=== PATIENT | female | born 1950 | race Caucasian/White ===

== ENCOUNTER → 2018-09-28 | Day surgery (SDC) | payer MEDICARE, BC ==
[~2018-09-28] MED LIST: ALBUTEROL SULFATE 2.5 MG/3 ML NEBU. NEB PRN; ATROPINE 0.5 MG/5 ML DISP.SYRIN. IV PRN; CELE200C PO; IV RINGERS SOLUTION,LACTATED 1,000 ML IV SCH; LIDOCAINE 2% PF Vial for OR 5 ML VIAL. ONE; NALOXONE 0.4 MG/ML VIAL. IV PRN; ONDANSETRON PF 4 MG/2 ML VIAL. IV PRN; PROPOFOL 40 ML IV ONE; RANI150T21 PO; VALA10005 PO; diphenhydrAMINE 50 MG/ML VIAL IV PRN
[2018-09-28 12:10] VITALS: BP 120/74
== END | disposition home or self-care (01) ==
LOC: SURG 09:24
PROVIDERS: ATTEND Internal Medicine Gastroenterology
DX: R19.4 Change in bowel habit (principal); K21.9 Gastro-esophageal reflux disease without esophagitis; Z98.890 Other specified postprocedural states; Z79.899 Other long term (current) drug therapy; Z88.8 Allergy status to other drugs, medicaments and biological substances
CPT/HCPCS: 45378; J2704; J2001

== ENCOUNTER → 2018-11-17 | Outpatient (CLI) | payer MEDICARE, BC ==
[2018-09-28 12:10] VITALS: BP 120/74
[~2018-11-17] MED LIST changes: -ALBUTEROL SULFATE 2.5 MG/3 ML NEBU. NEB PRN; -ATROPINE 0.5 MG/5 ML DISP.SYRIN. IV PRN; -IV RINGERS SOLUTION,LACTATED 1,000 ML IV SCH; -LIDOCAINE 2% PF Vial for OR 5 ML VIAL. ONE; -NALOXONE 0.4 MG/ML VIAL. IV PRN; -ONDANSETRON PF 4 MG/2 ML VIAL. IV PRN; -PROPOFOL 40 ML IV ONE; -diphenhydrAMINE 50 MG/ML VIAL IV PRN
--- NOTE | 2018-11-17 15:59 | RAD ---
DATE: 11/17/2018 EXAM: MAMMO RM AIDANG RT, BREAST RIGHT HISTORY: Right breast lump COMPARISON: 09/14/2018, 12/12/2015 This study was interpreted with the benefit of Computerized Aided Detection (CAD). Breast Density: HETERO The breast parenchyma is heterogenously dense, which could reduce sensitivity of mammography. Breast parenchyma level C. FINDINGS: 2-D and 3-D tomosynthesis imaging was performed in CC and MLO projections. There is a 22 mm smooth nodule seen in the upper inner quadrant at approximately the 12:30 location. A similar finding was present on the previous study. The fibroglandular tissues are quite heterogeneous. No spiculated mass or architectural distortion is evident. There are scattered benign type calcifications. There is clustering of microcalcifications laterally which was also evident on the previous study. These were better defined on the 09/14/2018 study due to technical factors. These have been present on previous studies dating back to at least 12/12/2015, favoring a benign etiology. Right breast ultrasound, 11/17/2018: A targeted ultrasound exam of the right breast demonstrates an anechoic structure compatible with a cyst at the 12:30 location approximately 5 cm from the nipple. It demonstrates good through transmission. It measures 2.5 x 1.7 x 1.3 cm. This corresponds in size and location to the mammographic abnormality. IMPRESSION: 1. Simple cyst at the 12:30 location in the right breast. 2. No significant change since 09/14/2018 BI-RADS CATEGORY: 2 BENIGN FINDING(S) RECOMMENDED FOLLOW-UP: 12M 12 MONTH FOLLOW-UP PQRS compliance statement: Patient information was entered into a reminder system with a target due date for the next mammogram. Mammography is a sensitive method for finding small breast cancers, but it does not detect them all and is not a substitute for careful clinical examination. A negative mammogram does not negate a clinically suspicious finding and should not result in delay in biopsying a clinically suspicious abnormality. "Our facility is accredited by the [employer] Mammography Program."
== END | disposition home or self-care (01) ==
LOC: US 12:52
PROVIDERS: ATTEND Physician Assistant Medical
DX: N60.01 Solitary cyst of right breast (principal); N64.89 Other specified disorders of breast
CPT/HCPCS: 76641; 77065; G0279; 77061

== ENCOUNTER 2020-05-01 14:23 | Emergency (ER) | payer MEDICARE, BC ==
[~2020-05-01] VITALS: Ht 162.6 cm; Wt 81.8 kg
[~2020-05-01 14:23] MED LIST changes: +RANI-376 PO; -RANI150T21 PO
--- NOTE | 2020-05-01 15:16 | PHYS DOC ---
Past History Past Medical History: Hypertension (SADIQ GALDAMEZ APRN) Past Surgical History: Other Additional Past Surgical Histo: PARTIAL THYROIDECTOMY (SADIQ GALDAMEZ APRN) Alcohol Use: None (SADIQ GALDAMEZ APRN) Adult General Chief Complaint Chief Complaint: HEADACHE HPI HPI Patient is a 69-year-old female who presents emergency department with complaints of a headache behind her left eye since awakening at 4:00 this morning. Patient reports she has been having problems with intermittent headaches for the last month, the headaches are typically relieved by ibuprofen or Aleve. Patient states that she took Aleve this morning with no change in her discomfort. She denies any vision changes, photosensitivity, dizziness, syncope, neck pain, fever, cough, sore throat, nausea, vomiting, diarrhea, abdominal pain, body aches, shortness of breath, edema, chest pain, or palpitations. Patient denies any numbness, tingling, or weakness at this time. Patient reports that 4 days ago she did have some numbness in her left arm but denies any symptoms at this time. Patient reports that when she was younger she used to have migraine headaches but has not had one in several years. Patient was seen by her primary care doctor yesterday and was prescribed losartan for high blood pressure. Patient states until yesterday she has always had low blood pressure. She currently rates her pain a 5 out of 10 on the pain scale, she denies any alleviating or exacerbating factors. (SADIQ GALDAMEZ APRN) Review of Systems Review of Systems Complete ROS is negative unless otherwise noted in HPI. (SADIQ GALDAMEZ APRN) Allergies Allergies Allergies Coded Allergies Type Severity Reaction Last Updated Verified propoxyphene Allergy Unknown 05/01/20 Yes (SADIQ GALDAMEZ APRN) Physical Exam Physical Exam See Above Constitutional: Well developed, well nourished, no acute distress, Anxious. [] HENT: Normocephalic, atraumatic, bilateral external ears normal, oropharynx moist, no oral exudates, nose normal. [] Eyes: PERRLA, EOMI, conjunctiva normal, no discharge. [] Neck: Normal range of motion, no stridor. [] Cardiovascular:Heart rate regular rhythm, no murmur [] Lungs & Thorax: Bilateral breath sounds clear to auscultation, respirations even and unlabored, no retractions, no respiratory distress [] Abdomen: soft, no tenderness Skin: Warm, dry, no erythema, no rash. [] Back: No tenderness Extremities: No cyanosis, ROM intact, no edema. [] Neurologic: Alert and oriented X 3, normal motor function, normal sensory function, no focal deficits noted. [] Psychologic: Affect normal, judgement normal, mood normal. [] (SADIQ GALDAMEZ APRN) Current Patient Data Vital Signs Vital Signs Date Time Temp Pulse Resp B/P (MAP) Pulse Ox O2 Delivery O2 Flow Rate FiO2 05/01/20 14:30 97.8 96 15 157/89 (111) 99 Room Air (SADIQ GALDAMEZ APRN) EKG EKG [] (SADIQ GALDAMEZ APRN) Radiology/Procedures Radiology/Procedures PROCEDURE: CT HEAD WO CONTRAST Exam: CT head INDICATION: Intermittent headache for one month TECHNIQUE: Sequential axial images through the head were obtained without the administration of IV contrast. Comparisons: None FINDINGS: No focal parenchymal lesion or hemorrhage is identified. There is no midline shift or sulcal effacement. No acute vascular territory infarction is identified. Perez-white distinction is preserved. The ventricular system is within normal limits without compression hydrocephalus. The basal cisterns are well maintained. The visualized portions of the paranasal sinuses and mastoid air cells are well-pneumatized. No acute fractures. IMPRESSION: No acute intracranial abnormality. Exposure: One or more of the following in the visualized dose reduction techniques were utilized for this examination: 1. Automated exposure control 2. Adjustment of the MA and/or KV according to patient size Use of iterative of reconstructive technique[] (SADIQ GALDAMEZ APRN) Heart Score Risk Factors: Risk Factors: DM, Current or recent (<one month) smoker, HTN, HLP, family history of CAD, obesity. Risk Scores: Risk Factors: DM, Current or recent (<one month) smoker, HTN, HLP, family history of CAD, obesity. (SADIQ GALDAMEZ APRN) Course & Med Decision Making Course & Med Decision Making Pertinent Labs and Imaging studies reviewed. (See chart for details) 61-year-old female presents emergency department for evaluation of headache. CT head was unremarkable. The patient was given a liter of normal saline, 12.5 IV Benadryl, 10 mg of IV Compazine, and 125 mg of IV Solu-Medrol. She reported relief of her symptoms after the medications. Vital signs were stable. Will prescribe patient some Fioricet to take as needed. Encouraged her to follow-up with her primary care doctor in 1 to 2 days, return to the ER symptoms worsen. Patient verbalized an understanding of home care, medications, follow-up, and return to ED instructions and was in agreement with the plan of care. [] (SADIQ GALDAMEZ APRN) Course & Med Decision Making The patient was seen and interviewed as well as examined at the bedside by myself. The chart was reviewed. The case was discussed. Agree with the plan of care. 69-year-old female presents with a headache. Patient has a normal neurological exam and feels much better after her treatment. CT is negative. CT was done due to her age and change in her headache. (PEBBLES HATCH MD) Dragon Disclaimer Dragon Disclaimer This electronic medical record was generated, in whole or in part, using a voice recognition dictation system. (SADIQ GALDAMEZ APRN) Departure Departure: Impression: Primary Impression: Headache Disposition: 01 DC HOME SELF CARE/HOMELESS Condition: STABLE Referrals: FLAVIA BOBO (PCP) Patient Instructions: General Headache Without Cause, [id number] Additional Instructions: Fill the prescription and use it as directed. Home to rest in a cool dark room. Limit exposure to screens. Follow-up with your primary care doctor in 1 to 2 days, return to the ER if symptoms worsen. Scripts Butalb/Acetaminophen/Caffeine ([id number] CP) 1 Each Capsule 1-2 CAP PO Q6-8HRS PRN for HEADACHE MDD 6 tabs for 3 Days, #12 CAP 0 Refills Prov: SADIQ GALDAMEZ APRN 05/01/20 Problem Qualifiers Primary Impression: Headache Headache type: unspecified Headache chronicity pattern: acute headache Intractability: not intractable Qualified Codes: R51.9 - Headache, unspecified SADIQ GALDAMEZ APRN May 01, 2020 15:15 PEBBLES HATCH MD May 01, 2020 16:46
--- NOTE | 2020-05-01 15:29 | RAD ---
Exam: CT head INDICATION: Intermittent headache for one month TECHNIQUE: Sequential axial images through the head were obtained without the administration of IV contrast. Comparisons: None FINDINGS: No focal parenchymal lesion or hemorrhage is identified. There is no midline shift or sulcal effacement. No acute vascular territory infarction is identified. Perez-white distinction is preserved. The ventricular system is within normal limits without compression hydrocephalus. The basal cisterns are well maintained. The visualized portions of the paranasal sinuses and mastoid air cells are well-pneumatized. No acute fractures. IMPRESSION: No acute intracranial abnormality. Exposure: One or more of the following in the visualized dose reduction techniques were utilized for this examination: 1. Automated exposure control 2. Adjustment of the MA and/or KV according to patient size Use of iterative of reconstructive technique Electronically signed by: Uche Reynolds MD (05/01/2020 3:26 PM) JOLIE
[2020-05-01] MEDS ORDERED: diphenhydrAMINE 50 MG/ML VIAL IVP ONE (15:30)
[2020-05-01] MEDS ORDERED: methylPREDNISolone SOD SUCC PF 125 MG/2 ML VIAL. IV ONE (15:30)
[2020-05-01] MEDS ORDERED: PROCHLORPERAZINE 10 MG/2 ML VIAL. IV ONE (15:30)
[2020-05-01] MEDS ORDERED: IV NORMAL SALINE 1,000ML 1,000 ML IV ONE (15:30)
[2020-05-01] MEDS ORDERED: KETOROLAC 15 MG/ML VIAL. IVP ONE (15:45)
[2020-05-01] MEDS ORDERED: BUTA1CAP27 PO (16:32)
[2020-05-01 16:55] VITALS: BP 138/77
== END 2020-05-01 16:56 | disposition home or self-care (01) ==
LOC: ER 14:23
DX: R51.9 Headache, unspecified (principal); R20.0 Anesthesia of skin; I10 Essential (primary) hypertension; Z88.8 Allergy status to other drugs, medicaments and biological substances
CPT/HCPCS: 70450; 96361; 96374; 96375; 99285; J0780; J1200; J1885; J2930; J7030

== ENCOUNTER → 2021-07-31 | Outpatient (CLI) | payer MEDICARE, BC ==
[~2021-07-31] MED LIST changes: +BUTA1CAP27 PO
--- NOTE | 2021-07-31 13:33 | RAD ---
INDICATION: Screening for osteopenia/osteoporosis. Reason: COMPRESSION FX / Spl. Instructions: / Hi story: COMPARISON: None. TECHNIQUE: Bone densitometry was performed through the lumbar spine and proximal femur. IMPRESSION: Lumbar Spine: BMD: 1.3 T-Score: 1.0 Range: Normal Proximal Femur: BMD: 0.73 T-Score: -1.8 Range: Osteopenic World [employer] Organization Criteria for Bone Density: T-Score: > -1.0: Normal Range < -1.0 to -2.5: Osteopenic Range < -2.5: Osteoporotic Range Electronically signed by: Jim Goodman MD (07/31/2021 1:30 PM) [id number]
== END ==
LOC: DXRAD 12:43
PROVIDERS: ATTEND Physician Assistant Medical
DX: M85.88 Other specified disorders of bone density and structure, other site (principal); M84.48XA Pathological fracture, other site, initial encounter for fracture
CPT/HCPCS: 77080